=== PATIENT | female | born 1965 | race African-American/Black ===

== ENCOUNTER 2017-02-17 11:01 | Emergency (ER) | payer MEDICAID ==
[~2017-02-17] VITALS: Ht 160 cm; Wt 83.9 kg
[~2017-02-17 11:01] MED LIST: AMLO10TA2; ATEN1TAB38
[2017-02-17 11:09] VITALS: BP 188/106
== END 2017-02-17 13:15 | disposition left against medical advice (07) ==
LOC: ER 11:01
DX: R07.9 Chest pain, unspecified (principal); Z53.21 Procedure and treatment not carried out due to patient leaving prior to being seen by health care provider
CPT/HCPCS: 93005

== ENCOUNTER 2018-06-30 20:48 | Emergency (ER) | payer MEDICAID ==
[~2018-06-30] VITALS: Ht 160 cm; Wt 83.5 kg
[~2018-06-30 20:48] MED LIST changes: +AMLO10TA12; -AMLO10TA2
[2018-06-30] MEDS ORDERED: cloNIDine HCL 0.1 MG TAB PO ONE ×2 (21:15→21:30)
[2018-06-30 23:10] VITALS: BP 106/65
[2018-06-30] MEDS ORDERED: methylPREDNISolone SOD SUCC 125 MG/2 ML VL IM ONE (23:15)
== END 2018-07-01 00:04 | disposition home or self-care (01) ==
LOC: ER 20:52
DX: R51 Headache (principal); R20.2 Paresthesia of skin; T50.995A Adverse effect of other drugs, medicaments and biological substances, initial encounter; M19.90 Unspecified osteoarthritis, unspecified site; I10 Essential (primary) hypertension; Z79.899 Other long term (current) drug therapy; Y92.89 Other specified places as the place of occurrence of the external cause
CPT/HCPCS: 96372; 99283; J2930

== ENCOUNTER 2019-06-04 14:34 | Inpatient (IN) | payer MEDICAID ==
[~2019-06-04] VITALS: Ht 160 cm; Wt 77.6 kg
--- NOTE | 2019-06-04 00:15 | NUR ---
Called hospitalist Dr. Villalta to inform him that upon admission patient reported chest pain at a 5. ECG done and showed sinus rhythm, VS: BP 129/72 [place] 60 T 97.9 SPO2 96% and patient refused PRN chest pain medications per protocol. Also informed him that patient currently still reports chest pain is at a 5 and refuses PRN chest medications per protocol. Addendum: 06/05/19 at 0030 by Carrie Moyer RN DATE 06/05/2019 TIME 0015
[~2019-06-04 14:34] MED LIST changes: -AMLO10TA12; +AMLO10TA13
[2019-06-04] MEDS ORDERED: cloNIDine HCL 0.1 MG TAB ONE (15:00)
[2019-06-04] MEDS ORDERED: cloNIDine HCL 0.1 MG TAB PO ONE (15:15)
[2019-06-04] MEDS ORDERED: ASPirin 81 mg TAB PO ONE (15:30)
[2019-06-04 16:26] LABS: Basophils # (auto) 0 uL; Basophils % (auto) 0.8 % (0.0-2.0); Eosinophils # (auto) 0 uL; Eosinophils % (auto) 0.6 % (0.0-7.0); Hematocrit 41.4 % (36.0-46.0); Hemoglobin 13.7 g/dL (12.2-16.2); Lymphocytes # (auto) 1.7 uL; Lymphocytes % (auto) 45.8 % (10.0-50.0); Mean Corpuscular Hemoglobin 31.7 pg (28.0-32.0); Mean Corpuscular Volume 96.2 fL (80.0-100.0); Monocytes # (auto) 0.2 uL; Monocytes % (auto) 6.2 % (0.0-12.0); Neutrophils # (auto) 1.7 uL; Neutrophils % (auto) 46.6 % (37.0-80.0); Nucleated Red Blood Cells % 0.1 %; Platelet Count (auto) 156 10^3/uL (140-450); Red Blood Cells 4.31 10^6/uL (4.0-5.20); Red Cell Distribution Width 14.1 % (11.8-14.3); White Blood Cell 3.6 10^3/uL (4.4-10.8)
[2019-06-04 16:29] LABS: Albumin 3.5 g/dL (3.4-5.0); Anion Gap 5 (5-15); Blood Urea Nitrogen 13 mg/dL (7-18); Calcium 8.6 mg/dL (8.5-10.1); Carbon Dioxide 28 mmol/L (21-32); Chloride 108 mmol/L (98-107); Glucose 96 mg/dL (74-106); Potassium 4.3 mmol/L (3.5-5.1); Sodium 141 mmol/L (136-145)
[2019-06-04 16:34] LABS: Alanine Aminotransferase 34 U/L (13-56); Alkaline Phosphatase 88 U/L (45-117); Aspartate Aminotransferase 27 U/L (15-37); BUN/Creatinine Ratio 12.9; Bilirubin, Total 0.2 mg/dL (0.2-1.0); GFR African American 74 mL/min; GFR Non-African American 61 mL/min; Total Protein 7.5 g/dL (6.4-8.2)
[2019-06-04] MEDS ORDERED: METOPROLOL TARTRATE 25 MG TAB PO ONE (18:30)
[2019-06-04] MEDS ORDERED: PROMETHAZINE HCL 25 MG/ML 1ML IV PRN (18:30)
[2019-06-04] MEDS ORDERED: ACETAMINOPHEN 500 MG TAB PO PRN (18:30)
[2019-06-04] MEDS ORDERED: LORazepam 0.5 MG TAB PO PRN (18:30)
[2019-06-04] MEDS ORDERED: LACTULOSE 20Gm/30ML SOLN PO PRN (18:30)
[2019-06-04] MEDS ORDERED: NITROGLYCERIN 0.4 MG SL TAB SL PRN (18:30)
[2019-06-04] MEDS ORDERED: traMADol HCL 50 MG TAB PO PRN (18:30)
[2019-06-04] MEDS ORDERED: MORPHINE SULF INJ 2 MG/ML SYRINGE 1ML IV PRN ×2 (18:30)
[2019-06-04] MEDS ORDERED: ONDANSETRON HCL 4 MG/2 ML VIAL IV ONE (18:45)
[2019-06-04] MEDS ORDERED: SODIUM CHLORIDE 0.9% 1,000 ML IV ONE (19:00)
[2019-06-04 20:03] VITALS: BP 140/74
--- NOTE | 2019-06-04 20:05 | NUR ---
Telemetry admit from ER Patient admitted to Telemetry unit. Patient oriented to primary RN, unit, room, bed, and unit policies regarding patient care and visiting hours. Patient now on continuous telemetry monitoring, tele box #52 and telemetry reading on arrival to unit is Sinus Rhythm. Patient placed on bedside oxygen, weighed by bedscale and encouraged to call if they need something. All questions and concerns addressed, patient verbalized understanding. Call light and bedside table are within reach. Bed is in lowest position, bedrails 2x, bed wheels locked.
[2019-06-04 20:15] VITALS: BP 129/72
[2019-06-04] MEDS: SODIUM CHLORIDE 0.9% 1,000 ML IV SCH (20:30)
--- NOTE | 2019-06-04 20:40 | NUR ---
Patient reports chest pain at a 5. ECG done and shows sinus rhythm. VS BP129/72 [place] 60 SPO2 96% RR20. No signs or symptoms of distress or SOB. Patient refused PRN chest pain medications per protocol. Will inform hospitalist. Will continue to monitor patient Q1 and PRN. Call light and bedside table are within reach. Bed is in lowest position, bed rails 2x, bed wheels locked.
[2019-06-04] MEDS ORDERED: AML5T PO (21:52)
[2019-06-04] MEDS ORDERED: POM (21:52)
[2019-06-04] MEDS ORDERED: ALPR0.25 PO (21:52)
[2019-06-04] MEDS ORDERED: SERT100T PO (21:52)
[2019-06-04] MEDS ORDERED: CLO01T PO (21:52)
[2019-06-04] MEDS: SODIUM CHLOR 0.9% PF (SALINE LOCK) 10ML VIAL/SYR IV SCH (22:00)
[2019-06-04 22:16] VITALS: BP 140/74
[2019-06-04] MEDS: METOPROLOL TARTRATE 25 MG TAB PO SCH (23:32)
[2019-06-04] MEDS: FAMOTIDINE 20 MG TAB PO SCH (23:32)
[2019-06-04] MEDS: ATORVASTATIN 20 MG TAB PO SCH (23:32)
--- NOTE | 2019-06-05 05:30 | NUR ---
ECG done, shows Sinus Rhythm. Patient denies chest pain, no s/s of distress or SOB. Will continue to monitor Q1 and PRN.
[2019-06-05] MEDS: SODIUM CHLOR 0.9% PF (SALINE LOCK) 10ML VIAL/SYR IV SCH ×3 (05:54→22:00)
[2019-06-05] MEDS: SODIUM CHLORIDE 0.9% 1,000 ML IV SCH (05:54)
[2019-06-05 05:59] VITALS: BP 149/83
[2019-06-05 06:03] LABS: Cholesterol 193 mg/dL (< 200); HDL Cholesterol 67 mg/dL (40-59); LDL Cholesterol 106 mg/dL (< 100); Triglycerides 114 mg/dL (< 150)
--- NOTE | 2019-06-05 07:30 | NUR ---
Opening Note Assumed pt care from [facility] nurse. Pt is a/ox4 with no s/s of distress or SOB. Pt is currently out of bed with no complaints at this time. Discussed POC with pt; pending Cardiology consult; pt verbalized understanding. Safety measures maintained with call light within reach, bed in lowest position and side rails up. Will continue to monitor for changes q1hr and prn.
[2019-06-05 09:00] VITALS: BP 145/80
[2019-06-05] MEDS: FAMOTIDINE 20 MG TAB PO SCH ×2 (09:30→22:57)
[2019-06-05] MEDS: METOPROLOL TARTRATE 25 MG TAB PO SCH (09:30)
[2019-06-05] MEDS ORDERED: METO-159 PO ×2 (09:39→16:54)
[2019-06-05] MEDS ORDERED: ENALAPRIL MALEATE 10 MG TAB PO SCH (10:00)
[2019-06-05] MEDS ORDERED: ENOXAPARIN SOD 40 MG/0.4 ML SYRINGE SC SCH (10:00)
[2019-06-05] MEDS ORDERED: ASPirin 81 mg TAB PO SCH (10:00)
[2019-06-05 13:00] VITALS: BP 156/88
[2019-06-05 13:02] LABS: Alcohol, Urine < 3.0 mg/dL (0-5); Amphetamine Screen, Urine NEGATIVE (NEGATIVE); Barbiturate Scree,Urine NEGATIVE (NEGATIVE); Benzodiazephine Screen, Urine NEGATIVE (NEGATIVE); Cannabinoid Screen, Urine NEGATIVE (NEGATIVE); Cocaine Screen, Urine NEGATIVE (NEGATIVE); Opiate Scree,Urine NEGATIVE (NEGATIVE); Phencyclidine Screen, Urine NEGATIVE (NEGATIVE)
--- NOTE | 2019-06-05 16:10 | NUR ---
Dr Arellano at Bedside MD to see pt. has adjusted BP meds. POC is to possibly d/c pt over night. Will implement and continue to monitor. Addendum: 06/05/19 at 1828 by BREE TILLEY RN RN Correction:: Plans to d/c tomorrow. Keep over night for observation.
[2019-06-05] MEDS ORDERED: cloNIDine HCL 0.1 MG TAB PO PRN (16:15)
[2019-06-05] MEDS ORDERED: MET50T PO (16:54)
[2019-06-05] MEDS ORDERED: OMEP20TA PO (16:54)
[2019-06-05] MEDS ORDERED: HCTZ25T PO (16:54)
[2019-06-05] MEDS ORDERED: CLON0.1T PO (16:54)
[2019-06-05 17:00] VITALS: BP 158/85
[2019-06-05] MEDS: METOPROLOL TARTRATE 50 MG TAB PO SCH ×2 (17:30→22:00)
[2019-06-05] MEDS ORDERED: HCTZ 25 MG TAB PO SCH (18:00)
--- NOTE | 2019-06-05 19:30 | NUR ---
Opening Shift Note Assumed care of patient, awake and alert, resting in bed. Family at bedside. No S/S of distress/SOB or pain. Instructed on POC and to call for assist PRN, will continue to monitor for changes Q1hr and PRN. Call light and bedside table are within reach. Bed is in lowest position, bed rails 2x, bed wheels locked.
[2019-06-05] MEDS ORDERED: LISINOPRIL 10 MG TAB PO SCH (22:00)
[2019-06-05 22:03] VITALS: BP 147/93
--- NOTE | 2019-06-05 22:40 | NUR ---
Blood pressure medication held Patient states she took own blood pressure medications she had with her at bed side. Patient verbalized she took one of her own Amlodipine 10mg tablets. Patient educated that home medications should be kept in pharmacy upon admission and should not be taken during their stay because of risk of adverse effects with other medications. Patient refused to keep medications in pharmacy. Current BP 156/ 97 NE 62 RR 20 SPO2 97%. Will continue to monitor Q1 and PRN. Charge nurse aware.
[2019-06-05] MEDS: ATORVASTATIN 20 MG TAB PO SCH (22:57)
--- NOTE | 2019-06-06 00:03 | NUR ---
Blood pressure 137/84 [place] 68 SPO2 98%. Patient has no s/s of distress or SOB. Patient educated and reminded not to take her own home medications. Patient resting in bed. Will continue to monitor Q1 and PRN.
--- NOTE | 2019-06-06 03:50 | NUR ---
Patient blood pressure 144/79 SC 71 RR 16. Patient resting in bed comfortably, no s/s of distress or SOB. Will continue to monitor Q1 and PRN. Call light and bedside table are within reach
[2019-06-06] MEDS: SODIUM CHLOR 0.9% PF (SALINE LOCK) 10ML VIAL/SYR IV SCH (05:28)
--- NOTE | 2019-06-06 07:00 | NUR ---
Opening Shift Note Received report on the patient. Awake lying in bed. Patient does not show any signs of distress at this time. Discussed the plan of care with the patient. Bed in lowest position, side rails up x2, and the call light is within reach. Will continue to monitor.
[2019-06-06 07:30] VITALS: BP 156/97
[2019-06-06 09:00] VITALS: BP 150/87
--- NOTE | 2019-06-06 09:50 | NUR ---
AMA Patient left [facility]. Patient was told that she would be discharged today by Dr. Arellano. There was no discharge order in the computer. I tried to get the patient to stay until the doctor came in, but she refused.
--- NOTE | 2019-06-06 09:56 | NUR ---
Tele Box Tele box sent back to the monitor techs.
== END 2019-06-06 09:50 | disposition left against medical advice (07) | DRG 199 ==
LOC: ER 14:34 → TELE 14:35 → TELE-WESTW 20:01
PROVIDERS: ADMIT Internal Medicine; ATTEND Internal Medicine
DX: I16.0 Hypertensive urgency (principal); I11.9 Hypertensive heart disease without heart failure; D72.819 Decreased white blood cell count, unspecified; E66.9 Obesity, unspecified; K58.9 Irritable bowel syndrome, unspecified; M19.90 Unspecified osteoarthritis, unspecified site; Z86.73 Personal history of transient ischemic attack (TIA), and cerebral infarction without residual deficits; Z90.710 Acquired absence of both cervix and uterus; Z82.49 Family history of ischemic heart disease and other diseases of the circulatory system; Z82.61 Family history of arthritis; Z80.3 Family history of malignant neoplasm of breast; Z88.1 Allergy status to other antibiotic agents; Z68.30 Body mass index [BMI] 30.0-30.9, adult
CPT/HCPCS: 36415; 71046; 80053; 80061; 80307; 82550; 84484; 85025; 85379; 85652; 86141; 93005; 93306; 96374; G0378; J2405

== ENCOUNTER 2022-03-03 15:38 | Emergency (ER) | payer MEDICAID ==
[~2022-03-03] VITALS: Ht 160 cm; Wt 84.0 kg
[2022-03-03 15:38] VITALS: BP 150/87
[~2022-03-03 15:38] MED LIST changes: +ALPR0.25 PO; +AML5T PO; -AMLO10TA13; -ATEN1TAB38; +CLO01T PO; +CLON0.1T PO; +HYDR25TA5 PO; +MET50T PO; +METO-159 PO; +OMEP20TA PO; +POM; +SERT100T PO
[2022-03-03 17:45] LABS: Basophils # (auto) 0 10 ^3/uL (0-0.2); Basophils % (auto) 0.5 % (0.0-2.0); Eosinophils # (auto) 0 10 ^3/uL (0-0.8); Eosinophils % (auto) 0.7 % (0.0-7.0); Hematocrit 44.1 % (36.0-46.0); Hemoglobin 14.3 g/dL (12.2-16.2); Lymphocytes # (auto) 3.6 10 ^3/uL (0.4-5.4); Lymphocytes % (auto) 54.2 % (10.0-50.0); Mean Corpuscular Hemoglobin 31.1 pg (28.0-32.0); Mean Corpuscular Hgb Conc. 32.5 g/dL (32.0-36.0); Mean Corpuscular Volume 95.8 fL (80.0-100.0); Monocytes # (auto) 0.4 10 ^3/uL (0-1.3); Monocytes % (auto) 6.1 % (0.0-12.0); Neutrophils # (auto) 2.6 10 ^3/uL (1.6-8.6); Neutrophils % (auto) 38.5 % (37.0-80.0); Nucleated Red Blood Cells % 0.1 %; Red Cell Distribution Width 14.2 % (11.8-14.3); White Blood Cell 6.7 10^3/uL (4.4-10.8)
[2022-03-03 18:21] LABS: Albumin 3.8 g/dL (3.4-5.0); BUN/Creatinine Ratio 13.4; Bilirubin, Total 0.5 mg/dL (0.2-1.0); Calcium 9.4 mg/dL (8.5-10.1); Total Protein 7.9 g/dL (6.4-8.2)
[2022-03-03 18:27] LABS: Potassium 3.6 mmol/L (3.5-5.1)
[2022-03-03 21:45] LABS: Urine Bacteria FEW /hpf (None Seen); Urine Blood Negative /uL (Negative); Urine Specific Gravity 1.005 (1.001-1.035); Urine WBC 3 /hpf (0 - 5)
== END 2022-03-03 20:29 | disposition home or self-care (01) ==
LOC: ER 15:38
DX: R07.89 Other chest pain (principal); I10 Essential (primary) hypertension; M19.90 Unspecified osteoarthritis, unspecified site; Z86.73 Personal history of transient ischemic attack (TIA), and cerebral infarction without residual deficits; Z90.710 Acquired absence of both cervix and uterus; Z88.1 Allergy status to other antibiotic agents
CPT/HCPCS: 36415; 71045; 80053; 81001; 84484; 85025; 93005

== ENCOUNTER → 2022-03-15 | Emergency (ER) | payer MEDICAID ==
[~2022-03-15] VITALS: Ht 160 cm; Wt 82.0 kg
[~2022-03-15] MED LIST changes: +ALBUTEROL SULF 2.5 MG/0.5ML(0.5%) NEB SOLN NEB ONE; +DexAMETHasone SOD PHOS 10MG/1ML VIAL INJ IV ONE
[2022-03-15 11:42] VITALS: BP 143/77
[2022-03-15 12:01] LABS: Basophils # (auto) 0 10 ^3/uL (0-0.2); Basophils % (auto) 0.7 % (0.0-2.0); Eosinophils # (auto) 0.1 10 ^3/uL (0-0.8); Eosinophils % (auto) 0.9 % (0.0-7.0); Hematocrit 44.2 % (36.0-46.0); Hemoglobin 14.5 g/dL (12.2-16.2); Lymphocytes # (auto) 3.2 10 ^3/uL (0.4-5.4); Lymphocytes % (auto) 51.1 % (10.0-50.0); Mean Corpuscular Hemoglobin 30.9 pg (28.0-32.0); Mean Corpuscular Hgb Conc. 32.8 g/dL (32.0-36.0); Mean Corpuscular Volume 94.2 fL (80.0-100.0); Monocytes # (auto) 0.3 10 ^3/uL (0-1.3); Monocytes % (auto) 5.2 % (0.0-12.0); Neutrophils # (auto) 2.6 10 ^3/uL (1.6-8.6); Neutrophils % (auto) 42.1 % (37.0-80.0); Nucleated Red Blood Cells % 0.1 %; Red Blood Cells 4.69 10^6/uL (4.0-5.20); Red Cell Distribution Width 14.1 % (11.8-14.3); White Blood Cell 6.3 10^3/uL (4.4-10.8)
[2022-03-15 12:15] LABS: INR 0.94 (0.9-1.15); Partial Thromboplastin Time 22.8 sec (24.6-33.4)
[2022-03-15 12:29] LABS: Calcium 9.6 mg/dL (8.5-10.1); Magnesium 2.5 mg/dL (1.6-2.6); Potassium 3.9 mmol/L (3.5-5.1)
[2022-03-15 12:33] LABS: BUN/Creatinine Ratio 19.6; Bilirubin, Total 0.6 mg/dL (0.2-1.0); Total Protein 7.9 g/dL (6.4-8.2)
[2022-03-15] MEDS: MAGNESIUM SULFATE 1GM/100ML 100 ML IV SCH (16:00)
== END | disposition home or self-care (01) ==
LOC: ER 11:31
DX: R07.81 Pleurodynia (principal); I10 Essential (primary) hypertension; Z86.73 Personal history of transient ischemic attack (TIA), and cerebral infarction without residual deficits; Z90.710 Acquired absence of both cervix and uterus; Z79.899 Other long term (current) drug therapy; Z88.1 Allergy status to other antibiotic agents
CPT/HCPCS: 36415; 71046; 80053; 83735; 83880; 84484; 85025; 85610; 85730; 93005